=== PATIENT | female | born 1940 | race Caucasian/White ===

== ENCOUNTER 2019-09-06 10:43 | Outpatient (CLI) | payer MEDICARE ==
[~2019-09-06 10:43] MED LIST: ALBU18HF INH; DIPH25CA61 PO; ESCI10TA PO; ESCI20TA PO; LEVO50TA PO; LEVO50TA5 PO; MONT10TA9 PO; MONT5TAB6 PO; PANT40TA5 PO; POLY17PO5 PO; PRED20TA PO; [UNRECOGNIZED DRUG - OTHER] NAS
[2019-09-06] MEDS ORDERED: MONT10TA6 PO (11:17)
[2019-09-06] MEDS ORDERED: ESCI10TA PO (11:17)
[2019-09-06] MEDS ORDERED: LEVO50TA5 PO (11:17)
[2019-09-06] MEDS ORDERED: FLUT1BLS INH (11:17)
[2019-09-06] MEDS ORDERED: PANT40TA5 PO (11:17)
[2019-09-06 11:57] LABS: BASOPHILS # (AUTO) 0.05 x10^3/uL (0-0.1); BASOPHILS % (AUTO) 1 % (0-1); EOSINOPHILS # (AUTO) 0.06 x10^3/uL (0-0.4); EOSINOPHILS % (AUTO) 1 % (1-7); LYMPHOCYTES # (AUTO) 1.04 x10^3/uL (1-3.4); LYMPHOCYTES % (AUTO) 24 % (22-44); MD NO; MEAN CORPUSCULAR HEMOGLOBIN 30.2 pg (27.0-34.8); MEAN CORPUSCULAR HGB CONC 33.1 g/dL (32.4-35.8); MEAN CORPUSCULAR VOLUME 91.1 fL (80-100); MEAN PLATELET VOLUME 7.8 fL (7.4-10.4); MONOCYTES # (AUTO) 0.68 x10^3/uL (0.2-0.8); MONOCYTES % (AUTO) 16 % (2-9); NEUTROPHILS # (AUTO) 2.48 x10^3/uL (1.8-6.8); NEUTROPHILS % (AUTO) 58 % (42-75); PLATELET COUNT 323 x10^3/uL (130-400); RED BLOOD COUNT 3.65 x10^6/uL (3.82-5.3); RED CELL DISTRIBUTION WIDTH 14.3 % (9.6-15.2)
[2019-09-06 12:05] LABS: INTERNATIONAL NORMALIZED RATIO 0.94 (0.93-1.1)
[2019-09-06 12:06] LABS: ALANINE AMINOTRANSFERASE 9 U/L (12-78); ALBUMIN 3.4 g/dL (3.4-5.0); ANION GAP 8 mmol/L (5-15); CALCIUM 8.8 mg/dL (8.5-10.1); CHLORIDE 100 mmol/L (98-107); CREATININE 0.92 mg/dL (0.55-1.02)
[2019-09-06 12:08] LABS: ALKALINE PHOSPHATASE 95 U/L (45-117); BILIRUBIN,TOTAL 0.5 mg/dL (0.2-1.0); TOTAL PROTEIN 7.8 g/dL (6.4-8.2)
== END 2019-09-06 23:59 | disposition home or self-care (01) ==
LOC: STAR 10:43
PROVIDERS: ATTEND Surgery
DX: Z01.818 Encounter for other preprocedural examination (principal); K44.9 Diaphragmatic hernia without obstruction or gangrene
CPT/HCPCS: 36415; 80053; 85025; 85610; 93005

== ENCOUNTER 2019-09-14 09:02 | Day surgery (SDC) | payer MEDICARE ==
[~2019-09-14] VITALS: Ht 160 cm; Wt 66.1 kg
[~2019-09-14 09:02] MED LIST changes: +FLUT1BLS INH; +MONT10TA11 PO; +MONT10TA6 PO; -MONT10TA9 PO
[2019-09-14 09:32] VITALS: BP 122/75
[2019-09-14] MEDS ORDERED: LACTATED RINGERS 1,000 ML IV SCH (09:36)
[2019-09-14 10:22] LABS: BASOPHILS # (AUTO) 0.04 x10^3/uL (0-0.1); BASOPHILS % (AUTO) 1 % (0-1); EOSINOPHILS # (AUTO) 0.04 x10^3/uL (0-0.4); EOSINOPHILS % (AUTO) 1 % (1-7); LYMPHOCYTES # (AUTO) 1.19 x10^3/uL (1-3.4); LYMPHOCYTES % (AUTO) 27 % (22-44); MD NO; MEAN CORPUSCULAR HEMOGLOBIN 30.3 pg (27.0-34.8); MEAN CORPUSCULAR HGB CONC 33.4 g/dL (32.4-35.8); MEAN CORPUSCULAR VOLUME 90.9 fL (80-100); MEAN PLATELET VOLUME 7.5 fL (7.4-10.4); MONOCYTES # (AUTO) 0.73 x10^3/uL (0.2-0.8); MONOCYTES % (AUTO) 16 % (2-9); NEUTROPHILS # (AUTO) 2.46 x10^3/uL (1.8-6.8); NEUTROPHILS % (AUTO) 55 % (42-75); PLATELET COUNT 313 x10^3/uL (130-400); RED BLOOD COUNT 3.51 x10^6/uL (3.82-5.3); RED CELL DISTRIBUTION WIDTH 14.4 % (9.6-15.2)
[2019-09-14 10:32] LABS: ANION GAP 7 mmol/L (5-15); CALCIUM 8.8 mg/dL (8.5-10.1); CHLORIDE 100 mmol/L (98-107); CREATININE 0.92 mg/dL (0.55-1.02)
[2019-09-14] MEDS ORDERED: BUPIVACAINE/PF 0.5% ONE (11:01)
[2019-09-14] MEDS ORDERED: APREPITANT 40 MG CAPSULE ONE ×2 (11:03→14:56)
[2019-09-14] MEDS ORDERED: MIDAZOLAM 1 MG/ML, 2ML ONE (11:13)
[2019-09-14] MEDS ORDERED: FENTANYL PF 250 MCG/5ML ONE (11:14)
[2019-09-14] MEDS ORDERED: PROPOFOL 50 ML ONE ×2 (11:15→12:16)
[2019-09-14] MEDS ORDERED: KETAMINE 10 MG/ML, 20ML ONE (11:19)
[2019-09-14] MEDS ORDERED: AZTREONAM 1 GM in SODIUM CHLORIDE 0.9% 50 ML IV ONE (12:00)
[2019-09-14] MEDS ORDERED: METRONIDAZOLE PMX 500MG/100ML 100 ML IV ONE (12:00)
[2019-09-14] MEDS ORDERED: ONDANSETRON 2MG/ML, 2ML ONE (13:11)
[2019-09-14] MEDS ORDERED: DEXAMETHASONE 4 MG/ML, 1ML ONE (13:11)
[2019-09-14] MEDS ORDERED: ROCURONIUM 10MG/ML,5ML ONE (13:11)
[2019-09-14] MEDS ORDERED: PROPOFOL 10 MG/ML, 20ML ONE (13:11)
[2019-09-14] MEDS ORDERED: SUGAMMADEX 200 MG/2 ML IVPush ONE (13:11)
[2019-09-14] MEDS ORDERED: OXYcodone 5 MG/5 ML ORAL.SOL UDC PO PRN (13:30)
[2019-09-14] MEDS ORDERED: ACETAMINOPHEN 325 MG TABLET PO PRN (13:30)
[2019-09-14] MEDS ORDERED: MEPERIDINE/PF 25MG/ML,1ML IVPush PRN (13:30)
[2019-09-14] MEDS ORDERED: HYDROmorphone 2 MG/ML, 1ML IVPush PRN (13:30)
[2019-09-14] MEDS ORDERED: FENTANYL PF 100 MCG/2ML IV PRN (13:30)
[2019-09-14] MEDS ORDERED: hydrALAzine 20 MG/ML, 1ML IV PRN (13:30)
[2019-09-14] MEDS ORDERED: HALOPERIDOL 5 MG/ML IV PRN (13:30)
[2019-09-14] MEDS ORDERED: ALBUTEROL/IPRATROPIUM 2.5MG/0.5MG, 3 ML NPPB PRN (13:30)
== END 2019-09-14 17:55 | disposition home or self-care (01) ==
LOC: OUT 09:02
PROVIDERS: ATTEND Surgery
DX: K44.9 Diaphragmatic hernia without obstruction or gangrene (principal); K21.9 Gastro-esophageal reflux disease without esophagitis; K66.0 Peritoneal adhesions (postprocedural) (postinfection); J84.10 Pulmonary fibrosis, unspecified; J44.9 Chronic obstructive pulmonary disease, unspecified; E03.9 Hypothyroidism, unspecified; I25.10 Atherosclerotic heart disease of native coronary artery without angina pectoris; Z99.81 Dependence on supplemental oxygen
CPT/HCPCS: 36415; 43282; 80048; 83880; 85025; C1781; J1100; J2250; J2405; J2704; J3010; J7120; J8501

== ENCOUNTER → 2020-08-21 | Outpatient (CLI) | payer MEDICARE ==
[~2020-08-21] MED LIST changes: -ESCI10TA PO; +ESCI10TA5 PO; -ESCI20TA PO; +ESCI20TA5 PO; -MONT10TA11 PO; +MONT10TA96 PO; -PANT40TA5 PO; +PANT40TA6 PO
== END | disposition home or self-care (01) ==
LOC: RAD 08:29
PROVIDERS: ATTEND Internal Medicine Gastroenterology
DX: K44.9 Diaphragmatic hernia without obstruction or gangrene (principal); K21.9 Gastro-esophageal reflux disease without esophagitis; K22.8 Other specified diseases of esophagus; R14.0 Abdominal distension (gaseous); R13.19 Other dysphagia; R63.4 Abnormal weight loss; J84.9 Interstitial pulmonary disease, unspecified
CPT/HCPCS: 74240